=== PATIENT | male | born 1965 | race Caucasian/White ===

== ENCOUNTER 2019-03-29 10:33 | Emergency (ER) | payer OTHER ==
[~2019-03-29] VITALS: Ht 170.2 cm; Wt 104.3 kg
[2019-03-29 10:49] VITALS: Ht 170.2 cm; Wt 104.3 kg
[2019-03-29 13:23] VITALS: BP 145/97
== END 2019-03-29 14:35 | disposition home or self-care (01) ==
LOC: ED 10:33
DX: S13.4XXA Sprain of ligaments of cervical spine, initial encounter (principal); S93.402A Sprain of unspecified ligament of left ankle, initial encounter; S50.01XA Contusion of right elbow, initial encounter; S09.8XXA Other specified injuries of head, initial encounter; M25.462 Effusion, left knee; W10.9XXA Fall (on) (from) unspecified stairs and steps, initial encounter; Y93.89 Activity, other specified; Y92.89 Other specified places as the place of occurrence of the external cause; Y99.8 Other external cause status
CPT/HCPCS: J2405; J3010